=== PATIENT | male | born 1950 | race Caucasian/White ===

== ENCOUNTER 2017-06-15 12:37 | Emergency (ER) | payer MEDICARE, MEDICAID ==
[~2017-06-15] VITALS: Ht 175.3 cm; Wt 86.0 kg
[2017-06-15] MEDS ORDERED: SULF1TAB49 PO (13:13)
[2017-06-15] MEDS ORDERED: CEPH500C5 PO (13:13)
[2017-06-15] MEDS ORDERED: sulfamethoxazole/trimethoprim DS (800/160mg) tablet PO ONE (13:15)
[2017-06-15] MEDS ORDERED: cephalexin 250mg capsule PO ONE (13:15)
[2017-06-15 13:34] VITALS: BP 165/107
== END 2017-06-15 13:34 | disposition home or self-care (01) ==
LOC: EDBD 12:38 → ER 12:38
DX: L03.115 Cellulitis of right lower limb (principal); R22.2 Localized swelling, mass and lump, trunk
CPT/HCPCS: 99283; A6449

== ENCOUNTER 2018-08-05 13:33 | Inpatient (IN) | payer MEDICARE, MEDICAID | END 2018-08-09 15:43 | disposition home or self-care (01) | LOC: ER 13:33 → ED HOLD 17:01 → PCU 3S 20:29 | DX: E11.65 Type 2 diabetes mellitus with hyperglycemia (principal); N17.0 Acute kidney failure with tubular necrosis; E87.2 Acidosis; J44.9 Chronic obstructive pulmonary disease, unspecified; E87.5 Hyperkalemia; D63.8 Anemia in other chronic diseases classified elsewhere ==

== ENCOUNTER 2018-08-13 07:06 | Emergency (ER) | payer MEDICARE, MEDICAID ==
[~2018-08-13] VITALS: Ht 177.8 cm; Wt 90.0 kg
[~2018-08-13 07:06] MED LIST: AMLO5TAB16 PO; CEPH500C5 PO; INSU100V11 SQ; LANTUS SQ; PANT40TA4 PO; PRED10TA23 PO
[2018-08-13] MEDS ORDERED: methylPREDNISolone sod succ 125mg/2ml vial IV ONE (07:15)
[2018-08-13] MEDS ORDERED: ipratropium/albuterol 3ml nebule NEB ONE (07:15)
[2018-08-13 07:49] VITALS: BP 152/92
[2018-08-13] MEDS ORDERED: insulin regular, human 10 units/0.1 ml syringe IV ONE (07:55)
[2018-08-13] MEDS ORDERED: insulin regular, human 10 units/0.1 ml syringe SQ ONE (07:55)
--- NOTE | 2018-08-13 07:56 | NUR ---
BG 573MG/DL.DR. LUOFS AWARE.
[2018-08-13 08:05] LABS: BASOPHILS % (AUTO) 0.1 % (0-1); EOSINOPHILS % (AUTO) 0.2 % (0-6); HEMATOCRIT 30.1 % (42.0-52.0); HEMOGLOBIN 9.6 g/dl (14.0-17.9); LYMPHOCYTES # (AUTO) 0.5 X10'3 (1.1-4.8); LYMPHOCYTES % (AUTO) 4.2 % (21-51); MEAN CORPUSCULAR HGB CONC 31.9 g/dL (33.0-36.5); MEAN CORPUSCULAR VOLUME 81.7 FL (78-98); MEAN PLATELET VOLUME 8.8 FL (7.4-10.4); MONOCYTES # (AUTO) 0.9 X10'3 (0-0.9); MONOCYTES % (AUTO) 8.1 % (2-12); NEUTROPHILS # (AUTO) 10.2 X10'3 (1.8-7.7); NEUTROPHILS % (AUTO) 87.4 % (42-75); PLATELET COUNT 417 X10'3 (140-440); RED BLOOD COUNT 3.68 X10'6 (4.70-6.10); RED CELL DISTRIBUTION WIDTH 15.6 % (11.5-14.5); WHITE BLOOD COUNT 11.6 X10'3 (4.5-11.0)
[2018-08-13 08:23] LABS: PARTIAL THROMBOPLASTIN TIME 28 SECONDS (22-32); PROTHROMBIN TIME 10.4 SECONDS (9.0-12.0)
[2018-08-13 08:27] LABS: ALANINE AMINOTRANSFERASE 137 U/L (12-78); ALBUMIN 2.5 G/DL (3.4-5.0); ALBUMIN/GLOBULIN RATIO 0.7 (1.1-1.5); ALKALINE PHOSPHATASE 371 IU/L (46-116); ANION GAP 9 (8-16); ASPARTATE AMINO TRANSFERASE 47 U/L (10-37); BILIRUBIN,TOTAL 0.4 MG/DL (0.1-1.0); BLOOD UREA NITROGEN 61 MG/DL (7-18); CHLORIDE 99 MMOL/L (99-107); CREATININE 3.38 MG/DL (0.60-1.10); POTASSIUM 4.6 MMOL/L (3.5-5.1); SODIUM 135 MMOL/L (135-145); TOTAL CARBON DIOXIDE 27.2 MMOL/L (24-32); TOTAL PROTEIN 6.2 G/DL (6.4-8.2); eGFR 18 ML/MIN
[2018-08-13 08:38] LABS: GLUCOSE 569 MG/DL (70-104)
[2018-08-13] MEDS ORDERED: PRED20TA PO (09:48)
[2018-08-13] MEDS ORDERED: AZIT-63 PO (09:48)
[2018-08-15] MEDS ORDERED: PANT-47 PO (10:13)
[2018-08-16] MEDS ORDERED: [UNRECOGNIZED DRUG - CODE] (09:15)
== END 2018-08-13 10:04 | disposition home or self-care (01) ==
LOC: ER 07:06
DX: J44.9 Chronic obstructive pulmonary disease, unspecified (principal); E11.22 Type 2 diabetes mellitus with diabetic chronic kidney disease; N18.6 End stage renal disease; F17.210 Nicotine dependence, cigarettes, uncomplicated; Z99.2 Dependence on renal dialysis; Z79.899 Other long term (current) drug therapy; Z79.4 Long term (current) use of insulin
CPT/HCPCS: 36415; 71045; 80053; 82948; 84145; 84484; 85025; 85610; 85730; 87502; 87503; 93005; 94640; 94760; 96372; 96374; 96376; 99284; J1815; J2930

== ENCOUNTER 2018-08-14 04:54 | Inpatient (IN) | payer MEDICARE, MEDICAID | END 2018-08-18 10:40 | disposition left against medical advice (07) | LOC: ER 04:54 → ED HOLD 08:44 → PCU 3S 10:26 → MED 3N 19:10 | DX: I50.21 Acute systolic (congestive) heart failure (principal); N18.6 End stage renal disease; J44.1 Chronic obstructive pulmonary disease with (acute) exacerbation ==

== ENCOUNTER 2018-10-24 09:24 | Emergency (ER) | payer MEDICARE, MEDICAID ==
[~2018-10-24] VITALS: Ht 175.3 cm; Wt 92.7 kg
[~2018-10-24 09:24] MED LIST changes: -CEPH500C5 PO; +PANT-47 PO; -PANT40TA4 PO; -PRED10TA23 PO; +[UNRECOGNIZED DRUG - CODE]
[2018-10-24 09:27] VITALS: BP 149/82
[2018-10-24 10:14] LABS: BASOPHILS # (AUTO) 0.1 X10'3 (0-0.2); BASOPHILS % (AUTO) 0.9 % (0-1); EOSINOPHILS # (AUTO) 0.2 X10'3 (0-0.9); EOSINOPHILS % (AUTO) 2.5 % (0-6); HEMATOCRIT 34.1 % (42.0-52.0); LYMPHOCYTES # (AUTO) 2.5 X10'3 (1.1-4.8); LYMPHOCYTES % (AUTO) 24.7 % (21-51); MEAN CORPUSCULAR HGB CONC 32.3 g/dL (33.0-36.5); MEAN CORPUSCULAR VOLUME 77.5 FL (78-98); MEAN PLATELET VOLUME 8.5 FL (7.4-10.4); MONOCYTES # (AUTO) 0.9 X10'3 (0-0.9); MONOCYTES % (AUTO) 9.2 % (2-12); NEUTROPHILS # (AUTO) 6.2 X10'3 (1.8-7.7); NEUTROPHILS % (AUTO) 62.7 % (42-75); PLATELET COUNT 393 X10'3 (140-440); RED BLOOD COUNT 4.41 X10'6 (4.70-6.10); RED CELL DISTRIBUTION WIDTH 16.2 % (11.5-14.5); WHITE BLOOD COUNT 9.9 X10'3 (4.5-11.0)
[2018-10-24 10:32] LABS: ALANINE AMINOTRANSFERASE 18 U/L (12-78); ALBUMIN 2.9 G/DL (3.4-5.0); ALBUMIN/GLOBULIN RATIO 0.7 (1.1-1.5); ALKALINE PHOSPHATASE 126 IU/L (46-116); ANION GAP 10 (8-16); ASPARTATE AMINO TRANSFERASE 16 U/L (10-37); BILIRUBIN,TOTAL 0.2 MG/DL (0.1-1.0); BLOOD UREA NITROGEN 18 MG/DL (7-18); BUN/CREATININE RATIO 11.3 (5.4-32.0); CALCIUM 8.6 MG/DL (8.5-10.1); CHLORIDE 102 MMOL/L (99-107); GLUCOSE 165 MG/DL (70-104); MAGNESIUM 1.4 MG/DL (1.5-2.4); POTASSIUM 3.2 MMOL/L (3.5-5.1); SODIUM 141 MMOL/L (135-145); TOTAL CARBON DIOXIDE 29.4 MMOL/L (24-32); eGFR 43 ML/MIN
[2018-10-24] MEDS ORDERED: DOXY100C43 PO (10:57)
== END 2018-10-24 11:19 | disposition home or self-care (01) ==
LOC: ER 09:24
DX: T80.218A Other infection due to central venous catheter, initial encounter (principal); L03.313 Cellulitis of chest wall; I12.9 Hypertensive chronic kidney disease with stage 1 through stage 4 chronic kidney disease, or unspecified chronic kidney disease; E11.22 Type 2 diabetes mellitus with diabetic chronic kidney disease; N18.9 Chronic kidney disease, unspecified; J44.9 Chronic obstructive pulmonary disease, unspecified; Z99.2 Dependence on renal dialysis; Z79.4 Long term (current) use of insulin; Z79.899 Other long term (current) drug therapy; Y92.89 Other specified places as the place of occurrence of the external cause
CPT/HCPCS: 36415; 71045; 80053; 83605; 83735; 84145; 85025; 87040; 93005; 99284

== ENCOUNTER 2018-10-26 08:34 | Outpatient (CLI) | payer MEDICARE, MEDICAID ==
[~2018-10-26 08:34] MED LIST changes: +DOXY100C43 PO
[2018-10-26 09:21] LABS: BASOPHILS # (AUTO) 0.1 X10'3 (0-0.2); BASOPHILS % (AUTO) 1.4 % (0-1); EOSINOPHILS # (AUTO) 0.3 X10'3 (0-0.9); EOSINOPHILS % (AUTO) 2.5 % (0-6); HEMATOCRIT 35.4 % (42.0-52.0); HEMOGLOBIN 11.4 g/dl (14.0-17.9); LYMPHOCYTES # (AUTO) 2.7 X10'3 (1.1-4.8); LYMPHOCYTES % (AUTO) 24.9 % (21-51); MEAN CORPUSCULAR HEMOGLOBIN 24.8 PG (27.0-31.0); MEAN CORPUSCULAR HGB CONC 32.3 g/dL (33.0-36.5); MEAN CORPUSCULAR VOLUME 76.8 FL (78-98); MEAN PLATELET VOLUME 8.6 FL (7.4-10.4); MONOCYTES % (AUTO) 9.7 % (2-12); NEUTROPHILS # (AUTO) 6.7 X10'3 (1.8-7.7); NEUTROPHILS % (AUTO) 61.5 % (42-75); PLATELET COUNT 417 X10'3 (140-440); RED CELL DISTRIBUTION WIDTH 16.1 % (11.5-14.5); WHITE BLOOD COUNT 10.8 X10'3 (4.5-11.0)
[2018-10-26 09:34] LABS: CLARITY,URINE CLEAR (Clear); COLOR,URINE YELLOW (Yellow); GLUCOSE, URINE >=1000 mg/dl (Neg); KETONES,URINE NEGATIVE (Neg); LEUKOCYTE ESTERASE ,URINE NEGATIVE (Neg); NITRITES, URINE NEGATIVE (Neg); OCCULT BLOOD,URINE LARGE (Neg); PH,URINE 7.5 (4.8-8.0); PROTEIN,URINE 100 mg/dl (Neg); UROBILINOGEN,URINE 0.2 E.U/dL (0.2-1.0)
[2018-10-26 09:35] LABS: UA COLLECTION TYPE CLN CATCH MIDSTREAM
[2018-10-26 09:37] LABS: WBC,URINE 0-4 /HPF (0-4)
[2018-10-26 09:38] LABS: BACTERIA,URINE NONE SEEN /HPF (Neg); RBC,URINE 20-50 /HPF (0-2); SQUAMOUS EPITHELIAL CELL,UR FEW /LPF (FEW)
[2018-10-26 09:50] LABS: ALANINE AMINOTRANSFERASE 17 U/L (12-78); ALBUMIN 3.1 G/DL (3.4-5.0); ALBUMIN/GLOBULIN RATIO 0.7 (1.1-1.5); ALKALINE PHOSPHATASE 157 IU/L (46-116); ANION GAP 7 (8-16); ASPARTATE AMINO TRANSFERASE 10 U/L (10-37); BILIRUBIN,TOTAL 0.2 MG/DL (0.1-1.0); BLOOD UREA NITROGEN 38 MG/DL (7-18); BUN/CREATININE RATIO 19.9 (5.4-32.0); CALCIUM 9.4 MG/DL (8.5-10.1); CHLORIDE 100 MMOL/L (99-107); CREATININE 1.91 MG/DL (0.60-1.10); FERRITIN 190 NG/ML (26-388); GLUCOSE 328 MG/DL (70-104); POTASSIUM 4.1 MMOL/L (3.5-5.1); SODIUM 140 MMOL/L (135-145); TOTAL CARBON DIOXIDE 33.5 MMOL/L (24-32); TOTAL PROTEIN 7.5 G/DL (6.4-8.2); eGFR 35 ML/MIN
[2018-10-26 10:21] LABS: TOTAL PROTEIN,URINE RANDOM 70.1 MG/DL; UA PROTEIN/CREATININE RATIO 1.11 mg/mg Cr (0-0.16)
[2018-10-26 10:23] LABS: % IRON SATURATION 21 % (11-46); IRON 52 UG/DL (53-167); TOTAL IRON BINDING CAPACITY 249 UG/DL (259-388)
== END 2018-10-26 23:59 | disposition home or self-care (01) ==
LOC: LAB 08:34
PROVIDERS: ATTEND Internal Medicine
DX: E11.22 Type 2 diabetes mellitus with diabetic chronic kidney disease (principal); N18.4 Chronic kidney disease, stage 4 (severe); E55.9 Vitamin D deficiency, unspecified; D63.1 Anemia in chronic kidney disease; N39.0 Urinary tract infection, site not specified; D50.9 Iron deficiency anemia, unspecified; R80.9 Proteinuria, unspecified; M10.9 Gout, unspecified; J44.9 Chronic obstructive pulmonary disease, unspecified; Z87.891 Personal history of nicotine dependence
CPT/HCPCS: 36415; 80053; 81001; 82306; 82330; 82570; 82728; 83540; 83550; 84156; 84550; 85025

== ENCOUNTER 2019-01-08 04:27 | Inpatient (IN) | payer MEDICARE, MEDICAID ==
[~2019-01-08] VITALS: Ht 177.8 cm; Wt 92.7 kg
[~2019-01-08 04:27] MED LIST changes: -DOXY100C43 PO
[2019-01-08] MEDS ORDERED: methylPREDNISolone sod succ 125mg/2ml vial IV ONE (04:30)
[2019-01-08] MEDS ORDERED: ipratropium/albuterol 3ml nebule NEB ONE (04:30)
--- NOTE | 2019-01-08 04:40 | NUR ---
ATTEMPTED TO RECONCILE HOME EMD LIST. PT COULD NOT REMEMBER MEDICATIONS HE TAKES.
[2019-01-08] MEDS ORDERED: furosemide 10 MG/1 ML 10ml inj IV ONE (04:45)
[2019-01-08 04:48] LABS: BASOPHILS # (AUTO) 0.1 X10'3 (0-0.2); BASOPHILS % (AUTO) 1.1 % (0-1); EOSINOPHILS # (AUTO) 0.2 X10'3 (0-0.9); EOSINOPHILS % (AUTO) 1.8 % (0-6); HEMATOCRIT 29.6 % (42.0-52.0); HEMOGLOBIN 9.3 g/dl (14.0-17.9); LYMPHOCYTES # (AUTO) 2.2 X10'3 (1.1-4.8); LYMPHOCYTES % (AUTO) 23.5 % (21-51); MEAN CORPUSCULAR HEMOGLOBIN 24.4 PG (27.0-31.0); MEAN CORPUSCULAR HGB CONC 31.5 g/dL (33.0-36.5); MEAN CORPUSCULAR VOLUME 77.3 FL (78-98); MEAN PLATELET VOLUME 7.8 FL (7.4-10.4); MONOCYTES # (AUTO) 0.8 X10'3 (0-0.9); MONOCYTES % (AUTO) 8.6 % (2-12); PLATELET COUNT 231 X10'3 (140-440); RED BLOOD COUNT 3.83 X10'6 (4.70-6.10); RED CELL DISTRIBUTION WIDTH 20.6 % (11.5-14.5); WHITE BLOOD COUNT 9.2 X10'3 (4.5-11.0)
[2019-01-08 05:16] LABS: PARTIAL THROMBOPLASTIN TIME 31 SECONDS (22-32)
[2019-01-08 05:19] LABS: ALANINE AMINOTRANSFERASE 24 U/L (12-78); ALBUMIN 3.1 G/DL (3.4-5.0); ALBUMIN/GLOBULIN RATIO 0.8 (1.1-1.5); ALKALINE PHOSPHATASE 185 IU/L (46-116); ANION GAP 9 (8-16); ASPARTATE AMINO TRANSFERASE 19 U/L (10-37); BILIRUBIN,TOTAL 0.7 MG/DL (0.1-1.0); BLOOD UREA NITROGEN 32 MG/DL (7-18); BUN/CREATININE RATIO 18.9 (5.4-32.0); CALCIUM 8.3 MG/DL (8.5-10.1); CHLORIDE 110 MMOL/L (99-107); CREATININE 1.69 MG/DL (0.60-1.10); GLUCOSE 168 MG/DL (70-104); POTASSIUM 3.2 MMOL/L (3.5-5.1); SODIUM 147 MMOL/L (135-145); TOTAL PROTEIN 7.1 G/DL (6.4-8.2); eGFR 41 ML/MIN
[2019-01-08] MEDS ORDERED: nitroGLYCERIN-Tridil 50MG/D5W 250 ML IV SCH (05:40)
[2019-01-08] MEDS ORDERED: nitroGLYCERIN 1gm ointment UD TP ONE (05:45)
[2019-01-08] MEDS ORDERED: ondansetron/PF 4mg/2ml inj IV PRN (06:05)
[2019-01-08] MEDS ORDERED: magnesium hydroxide 30ml (MOM) UD suspension PO PRN (06:05)
[2019-01-08] MEDS ORDERED: mag hydrox/Alum hydrox/simeth 30ml oral suspension PO PRN (06:05)
[2019-01-08] MEDS ORDERED: morphine 2 MG/ML inj. syringe IV PRN ×2 (06:05)
[2019-01-08] MEDS ORDERED: acetaminophen 325mg tablet PO PRN (06:05)
[2019-01-08] MEDS ORDERED: dextrose ORAL solution 15 GM/59 ML bottle PO PRN ×2 (06:10)
[2019-01-08] MEDS ORDERED: glucagon, human recombinant 1mg kit SUBCUT PRN (06:10)
[2019-01-08] MEDS ORDERED: dextrose 50%-water 50ml dispensing syringe IV PRN ×2 (06:10)
[2019-01-08] MEDS ORDERED: MESSAGE TO PHARMACY PO ONE (06:10)
[2019-01-08] MEDS: carvedilol 6.25mg tablet PO SCH ×2 (07:33→20:23)
[2019-01-08] MEDS: amLODIPine 5mg tablet PO SCH (07:33)
[2019-01-08] MEDS: furosemide 10 MG/1 ML 10ml inj IV SCH ×2 (07:34→20:23)
[2019-01-08] MEDS: heparin, porcine 5000 units/ml vial SQ SCH ×2 (07:51→20:23)
--- NOTE | 2019-01-08 07:58 | NUR ---
paged apollo regarding diet order.
[2019-01-08] MEDS ORDERED: nitroGLYCERIN 0.4mg/hour patch TD SCH (08:00)
[2019-01-08 08:19] LABS: HEMOGLOBIN A1C 8.1 % (4.5-6.2)
--- NOTE | 2019-01-08 08:55 | NUR ---
paged hospitalist,sbp 200's.
--- NOTE | 2019-01-08 09:19 | NUR ---
[employer]IST AT BEDSIDE.
--- NOTE | 2019-01-08 09:19 | NUR ---
CALLED [facility]/PHARMACIST TO RETIME NITRO PATCH.
[2019-01-08] MEDS ORDERED: cloNIDine 0.1 mg tablet PO STA (09:20)
--- NOTE | 2019-01-08 09:21 | NUR ---
spoke to Dr. Ye regarding persistent high BP,received T.O for clonidine 0.2mg po x2 stat.Order noted and carried out.
--- NOTE | 2019-01-08 09:48 | NUR ---
paged dr. bustillos regarding troponin 0.06.
--- NOTE | 2019-01-08 09:52 | NUR ---
Patient in room . I have received report from ED RN and had the opportunity to ask questions and assume patient care.
[2019-01-08 11:00] VITALS: BP 168/97
--- NOTE | 2019-01-08 12:00 | NUR ---
DM consult: Pt with A1c 8.1, just admitted pending physical assessment and diet order. Will need DM education prior to discharge. Pt last seen by July 2018 with A1c 12.9 provided with written and verbal DM ed with referral to outpatient DM class. Pt admit with SOB and chest x-ray shows CHF per H&P. Will continue to follow. Recommendations: 1) Heart healthy CHO controlled diet 2) DM education prior to d/c; A1c down to 8.1 from 12.9 in July 3) Wt per rx Addendum: 01/08/19 at [address] Amended: Links added.
[2019-01-08] MEDS ORDERED: INSU100V11 SQ (13:17)
[2019-01-08] MEDS ORDERED: potassium Cl 20 mEq SR tablet PO PRN (13:25)
[2019-01-08] MEDS ORDERED: potassium CL 10mEq/100ml bag 100 ML IV PRN (13:25)
[2019-01-08 15:00] VITALS: BP 152/83
[2019-01-08] MEDS: potassium Cl 20 mEq SR tablet PO PRN ×2 (15:28→20:53)
[2019-01-08] MEDS: insulin Lispro (HumaLOG) vial - multi-dose SQ SCH ×2 (15:33→20:25)
[2019-01-08 18:00] VITALS: BP 164/93
--- NOTE | 2019-01-08 18:41 | NUR ---
Problems reprioritized. Patient report given, questions answered & plan of care reviewed with LUZ MARINA POSEY.
[2019-01-08] MEDS: insulin glargine (Lantus) pen - multi-dose SQ SCH (20:25)
[2019-01-08 22:00] VITALS: BP 151/82
[2019-01-09 02:00] VITALS: BP 147/79
[2019-01-09 06:04] LABS: BASOPHILS % (AUTO) 0.3 % (0-1); EOSINOPHILS % (AUTO) 0 % (0-6); HEMATOCRIT 28.3 % (42.0-52.0); HEMOGLOBIN 9.2 g/dl (14.0-17.9); LYMPHOCYTES # (AUTO) 0.9 X10'3 (1.1-4.8); LYMPHOCYTES % (AUTO) 8.1 % (21-51); MEAN CORPUSCULAR HEMOGLOBIN 24.8 PG (27.0-31.0); MEAN CORPUSCULAR HGB CONC 32.7 g/dL (33.0-36.5); MEAN CORPUSCULAR VOLUME 75.7 FL (78-98); MEAN PLATELET VOLUME 8.3 FL (7.4-10.4); MONOCYTES # (AUTO) 0.7 X10'3 (0-0.9); MONOCYTES % (AUTO) 6.3 % (2-12); NEUTROPHILS # (AUTO) 9.7 X10'3 (1.8-7.7); NEUTROPHILS % (AUTO) 85.3 % (42-75); PLATELET COUNT 258 X10'3 (140-440); RED BLOOD COUNT 3.73 X10'6 (4.70-6.10); RED CELL DISTRIBUTION WIDTH 20.4 % (11.5-14.5); WHITE BLOOD COUNT 11.4 X10'3 (4.5-11.0)
[2019-01-09 06:24] LABS: ALANINE AMINOTRANSFERASE 24 U/L (12-78); ALBUMIN 2.8 G/DL (3.4-5.0); ALBUMIN/GLOBULIN RATIO 0.8 (1.1-1.5); ALKALINE PHOSPHATASE 150 IU/L (46-116); ANION GAP 8 (8-16); ASPARTATE AMINO TRANSFERASE 16 U/L (10-37); BILIRUBIN,TOTAL 0.5 MG/DL (0.1-1.0); BLOOD UREA NITROGEN 48 MG/DL (7-18); CALCIUM 8.5 MG/DL (8.5-10.1); CHLORIDE 107 MMOL/L (99-107); CREATININE 1.92 MG/DL (0.60-1.10); GLUCOSE 163 MG/DL (70-104); POTASSIUM 3.4 MMOL/L (3.5-5.1); SODIUM 147 MMOL/L (135-145); TOTAL PROTEIN 6.5 G/DL (6.4-8.2); eGFR 35 ML/MIN
--- NOTE | 2019-01-09 06:30 | NUR ---
Patient in room PCU 3013. I have received report from KALPESH Barnhart and had the opportunity to ask questions and assume patient care.
[2019-01-09 07:00] VITALS: BP 158/94
[2019-01-09 07:44] LABS: ANISOCYTOSIS 3+; MICROCYTOSIS 1+; PLATELET ESTIMATE NORMAL; POIKILOCYTOSIS 1+; POLYCHROMASIA 1+; SCHISTOCYTES FEW
[2019-01-09] MEDS: amLODIPine 5mg tablet PO SCH (09:38)
[2019-01-09] MEDS: carvedilol 6.25mg tablet PO SCH ×2 (09:38→20:31)
[2019-01-09] MEDS: heparin, porcine 5000 units/ml vial SQ SCH ×2 (09:39→20:31)
[2019-01-09] MEDS: furosemide 10 MG/1 ML 10ml inj IV SCH ×2 (09:40→20:31)
[2019-01-09] MEDS: insulin Lispro (HumaLOG) vial - multi-dose SQ SCH ×2 (09:43→14:36)
[2019-01-09] MEDS: nitroGLYCERIN 0.4mg/hour patch TD SCH (09:44)
[2019-01-09] MEDS: potassium Cl 20 mEq SR tablet PO PRN ×3 (09:50→20:41)
[2019-01-09 11:00] VITALS: BP 141/68
[2019-01-09 15:00] VITALS: BP 156/84
--- NOTE | 2019-01-09 15:15 | NUR ---
F/u: Pt unable to wake during RD visit; written DM ed w/ RD contact information left at bedside. Noted A1C down to 8.1 from 12.9 previously. Addendum: 01/09/19 at [address] Amended: Links added.
[2019-01-09 18:00] VITALS: BP 151/82
--- NOTE | 2019-01-09 18:50 | NUR ---
Problems reprioritized. Patient report given, questions answered & plan of care reviewed with KALPESH Barnhart.
[2019-01-09] MEDS: insulin glargine (Lantus) pen - multi-dose SQ SCH (20:33)
[2019-01-09 22:00] VITALS: BP 177/105
--- NOTE | 2019-01-09 22:26 | NUR ---
Paged Dr. Posada for additional orders Page Sent PAGER ID: [phone] MESSAGE: Pt: Olayinka Rodas, Rm [id number], Severe ETOH withdrawal symptoms, is on mild protocol, not sufficient for his symptoms. Please call Bronwyn on [facility] [phone] Addendum: 01/09/19 at 2338 by Bronwyn Keller RN Wrong text pasted into above box. Paged Dr. Posada regarding SBP >180 for PRN medication, new orders entered.
[2019-01-09] MEDS ORDERED: metoprolol tartrate 1mg/ml inj IV ONE (22:50)
[2019-01-10 02:00] VITALS: BP 142/86
[2019-01-10 05:31] LABS: BASOPHILS # (AUTO) 0.1 X10'3 (0-0.2); EOSINOPHILS # (AUTO) 0.2 X10'3 (0-0.9); EOSINOPHILS % (AUTO) 1.6 % (0-6); HEMATOCRIT 33.7 % (42.0-52.0); HEMOGLOBIN 10.8 g/dl (14.0-17.9); LYMPHOCYTES # (AUTO) 2.2 X10'3 (1.1-4.8); LYMPHOCYTES % (AUTO) 20.7 % (21-51); MEAN CORPUSCULAR HEMOGLOBIN 24.6 PG (27.0-31.0); MEAN CORPUSCULAR HGB CONC 31.9 g/dL (33.0-36.5); MEAN CORPUSCULAR VOLUME 76.9 FL (78-98); MEAN PLATELET VOLUME 8.6 FL (7.4-10.4); MONOCYTES # (AUTO) 0.9 X10'3 (0-0.9); MONOCYTES % (AUTO) 8.7 % (2-12); NEUTROPHILS # (AUTO) 7.1 X10'3 (1.8-7.7); PLATELET COUNT 285 X10'3 (140-440); RED BLOOD COUNT 4.38 X10'6 (4.70-6.10); RED CELL DISTRIBUTION WIDTH 20.2 % (11.5-14.5); WHITE BLOOD COUNT 10.5 X10'3 (4.5-11.0)
--- NOTE | 2019-01-10 06:49 | NUR ---
Patient in room PCU 3013. I have received report from Bronwyn POSEY and had the opportunity to ask questions and assume patient care. Patient asleep in bed. In no acute distress. Will continue to monitor.
[2019-01-10 06:57] LABS: ALANINE AMINOTRANSFERASE 24 U/L (12-78); ALBUMIN/GLOBULIN RATIO 0.8 (1.1-1.5); ALKALINE PHOSPHATASE 148 IU/L (46-116); ANION GAP 11 (8-16); ASPARTATE AMINO TRANSFERASE 23 U/L (10-37); BILIRUBIN,TOTAL 0.7 MG/DL (0.1-1.0); BLOOD UREA NITROGEN 46 MG/DL (7-18); BUN/CREATININE RATIO 25.7 (5.4-32.0); CALCIUM 8.6 MG/DL (8.5-10.1); CHLORIDE 104 MMOL/L (99-107); CREATININE 1.79 MG/DL (0.60-1.10); GLUCOSE 93 MG/DL (70-104); POTASSIUM 3.4 MMOL/L (3.5-5.1); SODIUM 149 MMOL/L (135-145); eGFR 38 ML/MIN
[2019-01-10 07:00] VITALS: BP 142/88
[2019-01-10] MEDS: furosemide 10 MG/1 ML 10ml inj IV SCH (07:50)
[2019-01-10] MEDS: amLODIPine 5mg tablet PO SCH (07:51)
[2019-01-10] MEDS: heparin, porcine 5000 units/ml vial SQ SCH (07:51)
[2019-01-10] MEDS: carvedilol 6.25mg tablet PO SCH (07:51)
[2019-01-10] MEDS: nitroGLYCERIN 0.4mg/hour patch TD SCH (07:52)
[2019-01-10] MEDS: potassium Cl 20 mEq SR tablet PO PRN ×2 (08:01→12:35)
[2019-01-10] MEDS: insulin Lispro (HumaLOG) vial - multi-dose SQ SCH (08:11)
[2019-01-10] MEDS ORDERED: NOR5T PO (08:49)
[2019-01-10] MEDS ORDERED: CARV6.253 PO (08:49)
[2019-01-10] MEDS ORDERED: FURO-149 PO (08:49)
[2019-01-10 11:00] VITALS: BP 157/98
--- NOTE | 2019-01-10 12:40 | NUR ---
Patient stable for discharge per MD orders. All discharge instructions reviewed with patient and all questions answered. New prescriptions delivered by [facility] bedside. Patient educated on new prescriptions and dosages. PIV discontinued - cannula intact. Telemetry monitoring discontinued. Patient to follow up with PCP in 2 weeks and obtain referral to cardiology. All belongings and bedside delivery medications sent with patient in private vehicle to home. Patient wheeled to lobby by [facility].
== END 2019-01-10 12:42 | disposition home health service (06) | DRG 291 ==
LOC: ER 04:28 → PCU 3S 10:13
PROVIDERS: ADMIT Internal Medicine; ATTEND Internal Medicine
DX: I13.0 Hypertensive heart and chronic kidney disease with heart failure and stage 1 through stage 4 chronic kidney disease, or unspecified chronic kidney disease (principal); J96.01 Acute respiratory failure with hypoxia; I50.33 Acute on chronic diastolic (congestive) heart failure; N18.3 Chronic kidney disease, stage 3 (moderate); D63.8 Anemia in other chronic diseases classified elsewhere; E11.22 Type 2 diabetes mellitus with diabetic chronic kidney disease; E11.65 Type 2 diabetes mellitus with hyperglycemia; I48.91 Unspecified atrial fibrillation; J44.9 Chronic obstructive pulmonary disease, unspecified; Z79.899 Other long term (current) drug therapy; Z87.891 Personal history of nicotine dependence
CPT/HCPCS: 36415; 71045; 80053; 82948; 83036; 83735; 83880; 84484; 85025; 85610; 85730; 87081; 93005; 93306; 94640; 94760; 96374; 96375; 99285; G0378; J1644; J1815; J1940; J2270; J2930; J3490